=== PATIENT | male | born 1950 | race African-American/Black ===

== ENCOUNTER 2019-05-23 17:57 | Inpatient (IN) | payer OTHER ==
[2019-05-23 18:12] VITALS: BMI 24.3
[2019-05-23] MEDS ORDERED: SODIUM CHLORIDE 0.9% 500 ML INFUS.BAG IV ONE (19:13)
--- NOTE | 2019-05-23 19:17 | PDOC ---
History of Present Illness - General Chief Complaint: Pain Stated Complaint: LEG PAIN Time Seen by Provider: 05/23/19 18:56 - History of Present Illness Initial Comments: Renard Massey is a 69yo man with a PMH of thyroid disease, OA, and alcohol abuse who presents with lightheadedness, shortness of breath, and tachycardia today. He states that he feels that he is dehydrated as he has not been drinking any water for several days as he has been very busy caring for his . He additionally reports that he had "a pint of vodka and 3 beers" yesterday as well as similar amounts earlier in the week. He says that he only drinks on the weekends generally but has been drinking more frequently over the past week due to the holiday and his anniversary. He says that he was walking this afternoon when he felt "dizziness in his head" as well as generalized weakness. He denies any chest pain, vomiting, sweating, cough, LOC, or focal neurological symptoms. He has been taking his medications as prescribed. He takes ibuprofen frequently for hip pain due to arthritis but denies any blood in his stool or melena. He notes that his synthroid dose was recently increased from 75 to 88mcg, and he has not been back to see his doctor since it was changed. Past History - Past Medical History Allergies/Adverse Reactions: Allergies Allergy/AdvReac Type Severity Reaction Status Date / Time No Known Allergies Allergy Verified 05/23/19 18:12 Home Medications: Ambulatory Orders Ibuprofen 800 mg PO DAILY 05/23/19 Levothyroxine [Synthroid -] 88 mcg PO DAILY 05/23/19 CVA: Yes COPD: No Thyroid Disease: Yes - Suicide/Smoking/Psychosocial Hx Smoking History: Current every day smoker Number of Cigarettes Smoked Daily: 4 Information on smoking cessation initiated: No Review of Systems - Review of Systems Comments:: General: No fevers, no chills, no weight or appetite change, no malaise HEENT: No changes in vision, no changes in hearing, no congestion, no sore throat CV: No chest pain, no palpitations, no LE edema Pulm: + SOB, no cough, no wheezing GI: No nausea or vomiting, no change in bowel habits, no melena : No frequency, no urgency, no dysuria Musc: No back pain, no joint swelling, no recent injury Skin: No rash, no lesions, no erythema Endo: No excessive thirst, no heat/cold intolerance Heme: No unusual bruising or bleeding, no swollen glands Neuro: No syncope, no numbness/tingling, no focal weakness Vasc: No claudication Psych: No recent change in mood, no SI or HI *Physical Exam - Vital Signs Last Vital Signs Temp Pulse Resp BP Pulse Ox 98 F 121 H 18 115/71 92 L 05/23/19 18:08 05/23/19 18:08 05/23/19 18:08 05/23/19 18:08 05/23/19 18:08 - Physical Exam Comments: General: Comfortable, no acute distress HEENT: PERRL, EOMI, MMM, voice normal Cards: Tachycardic, regular, no murmur appreciated Pulm: Comfortable on room air, clear to auscultation bilaterally Abd: Soft, nontender, nondistended Ext: Atraumatic. No LE edema. ROM intact Vasc: Extremities WWP Skin: Normal color, no rashes or lesions Neuro: A&Ox3, CN grossly intact, normal speech, motor/sensory grossly intact and symmetric Psych: Mood appropriate to situation ED Treatment Course - LABORATORY CBC & Chemistry Diagram: 05/23/19 19:24 05/23/19 19:24 - RADIOLOGY Radiology Studies Ordered: Category Date Time Status CHEST PA & LAT [RAD] Stat Radiology 05/23/19 19:08 Ordered Medical Decision Making - Medical Decision Making 05/23/19 19:13 Renard Massey is a 69yo man with a PMH of thyroid disease, OA, and alcohol abuse who presents with lightheadedness, shortness of breath, and tachycardia today. He says that he believes it might be the heat as he has had very little water recently. He also endorses drinking heavily (1pt vodka, several beers) multiple times this week, most recently last night. - Note that patient has multiple open charts. Prior records note alcohol abuse though patient states he only drinks on weekends - Ddx includes dehydration, alcohol withdrawal, hyperthyroidism due to recent medication change, cannot exclude ACS - CBC, CMP, trop, EKG, CXR, TSH, T4 - 1L NS 05/23/19 20:39 - Labs reviewed. Notable for trop of 2.79 - Prior labs reviewed, no other trop available for comparison - EKG w/ sinus tach, normal intervals. Non-specific ST/t-wave changes in V1-V3; no comparison available - ASA ordered - 25mg librium ordered for continued tachycardia, possible early withdrawal - Updated pt. Now stating that he started having ODELL yesterday but assumed it was due to the heat. Endorsed to Dr Braden that he was out painting the house in the heat as well. - Advised patient that he should be admitted to the hospital due to a likely MS. Pt states that he does not feel he can be admitted as he needs to go to court tomorrow due to problems with his apartment. - Explained reasons for recommending admission. Requested that patient discuss hospital admission with his family. - Repeat trop sent. Will discuss w/ patient when resulted 05/23/19 22:46 - Repeat troponin 3.08 - Discussed results with patient, his , and Dr Braden. Explained severity of findings of elevated troponin. Ensured that patient understands he is having an MS. He states understanding, is concerned that his will not have anyone to help her at home. 05/23/19 22:53 - Spoke to Dr Owens, demolition hammer operator for Dr Carrillo. Agrees w/ plan for heparin and plavix. No indication for transfer for NSTEMI w/o chest pain - Call placed to Dr Garrido for admission 05/23/19 23:34 - Spoke to Dr Garrido, Will admit to telemetry Seen with Dr Braden. Tania Mims PGY2 *DC/Admit/Observation/Transfer Diagnosis at time of Disposition: Non-ST elevation (NSTEMI) myocardial infarction - Discharge Dispostion Decision to Admit order: Yes - Referrals - Patient Instructions - Post Discharge Activity
[2019-05-23 19:31] LABS: BASO % 0.6 % (0-2.0); EOS % 0.2 % (0-4.5); HEMATOCRIT 38.5 % (35.4-49); HEMOGLOBIN 12.6 GM/dL (11.7-16.9); LYMPH % 14.7 % (8-40); MCH 31.9 pg (25.7-33.7); MCHC 32.7 g/dl (32.0-35.9); MEAN CELL VOLUME 97.6 fl (80-96); MEAN PLT VOLUME 6.9 fl (7.5-11.1); MONO % 7.8 % (3.8-10.2); NEUT % 76.7 % (42.8-82.8); PLATELET COUNT 198 K/MM3 (134-434); RBC 3.94 M/mm3 (4.00-5.60); RDW 13.6 % (11.9-15.9); WHITE BLOOD COUNT 8.6 K/mm3 (4.0-10.0)
[2019-05-23 20:30] LABS: ALBUMIN 3.6 g/dl (3.4-5.0); BILIRUBIN,TOTAL 1.9 mg/dL (0.2-1); BLOOD UREA NITROGEN 16.1 mg/dL (7-18); CALCIUM 9.1 mg/dL (8.5-10.1); CREATININE 1.8 mg/dL (0.55-1.3); POTASSIUM 4.4 mmol/L (3.5-5.1); TOT PROT 7.8 g/dl (6.4-8.2)
[2019-05-23] MEDS ORDERED: ASPIRIN 81 MG CHEWABLE TABLETS PO ONE (20:41)
[2019-05-23] MEDS ORDERED: chlordiazePOXIDE HCL 25 MG CAPSULE PO ONE (20:41)
[2019-05-23] MEDS ORDERED: ASPIRIN 81 MG CHEWABLE TABLETS ONE (20:44)
[2019-05-23] MEDS ORDERED: chlordiazePOXIDE HCL 25 MG CAPSULE ONE (20:44)
[2019-05-23 21:08] LABS: EPI CELLS 2.4 /HPF (0-5/HPF); HYALINE CASTS 6 /lpf (0-8); URINE APPEARANCE CLEAR; URINE BACTERIA 27.9 /hpf (NEGATIVE); URINE BILIRUBIN NEGATIVE (NEGATIVE); URINE COLOR YELLOW; URINE GLUCOSE (UA) NEGATIVE (NEGATIVE); URINE KETONE NEGATIVE (NEGATIVE); URINE LEUK ESTERASE NEGATIVE (NEGATIVE); URINE NITRITE NEGATIVE (NEGATIVE); URINE PROTEIN TRACE (NEGATIVE); URINE RBC 3 /hpf (0-4); URINE UROBILINOGEN 0.2 mg/dL (0.2-1.0); URINE WBC 2 /hpf (0-5)
[2019-05-23 22:36] VITALS: TEMP 98
[2019-05-23] MEDS ORDERED: HEPARIN NA (PORCINE) 5,000 UNITS/ML 1ML VIAL IVPUSH PRN ×2 (22:56)
[2019-05-23] MEDS ORDERED: CLOPIDOGREL BISULFATE 300 MG TABLET PO ONE (22:56)
[2019-05-23] MEDS ORDERED: HEPARIN - 25,000 UNIT in SODIUM CHLORIDE 495 ML IV SCH (23:00)
[2019-05-23] MEDS ORDERED: CLOPIDOGREL BISULFATE 300 MG TABLET ONE (23:04)
[2019-05-23] MEDS ORDERED: HEPARIN NA (PORCINE) 5,000 UNITS/ML 1ML VIAL ONE (23:05)
[2019-05-23] MEDS ORDERED: HEPARIN INFUSION - 25,000 UNITS/500 ML INFUS.BAG IVPB ONE (23:05)
[2019-05-23 23:36] LABS: INR 1.03 (0.83-1.09); PROTHROMBIN TIME (PATIENT) 12.2 SEC (9.7-13.0)
[2019-05-23 23:38] LABS: ACTIVATED PTT 30.7 SECONDS (25.2-36.5)
[2019-05-24] MEDS ORDERED: DEXTROSE 5%-0.45% SALINE 1,000 ML IV SCH (03:00)
[2019-05-24] MEDS ORDERED: LEVOTHYROXINE NA 25 MCG TABLET (FP) ONE (06:52)
[2019-05-24] MEDS ORDERED: LEVOTHYROXINE NA 88 MCG TABLET (FP) PO SCH (07:00)
[2019-05-24 07:14] LABS: CHOLESTEROL 125 mg/dL (50-200); HDL CHOLESTEROL 58 mg/dL (40-60); TRIGLYCERIDES 76 mg/dL (0-150)
[2019-05-24 07:18] LABS: ALBUMIN 3.2 g/dl (3.4-5.0); BILIRUBIN,TOTAL 1.4 mg/dL (0.2-1); BLOOD UREA NITROGEN 13.7 mg/dL (7-18); CALCIUM 8.1 mg/dL (8.5-10.1); CREATININE 1.2 mg/dL (0.55-1.3); POTASSIUM 3.4 mmol/L (3.5-5.1); TOT PROT 7.1 g/dl (6.4-8.2)
[2019-05-24] MEDS ORDERED: ASPIRIN COATED 81 MG TABLET.EC PO SCH (10:00)
[2019-05-24] MEDS ORDERED: ASPIRIN COATED 81 MG TABLET.EC ONE (10:14)
[2019-05-24] MEDS ORDERED: METOPROLOL TARTRATE 25 MG TABLET (FP) ONE (10:15)
[2019-05-24] MEDS ORDERED: METOPROLOL TARTRATE 25 MG TABLET (FP) PO ONE (10:25)
--- NOTE | 2019-05-24 10:42 | CON.CARD ---
Consult Consult Specialty:: Cardiology Reason for Consultation:: nonstemi - History of Present Illness History of Present Illness: Renard Massey is a 69yo man with a PMH of thyroid disease, OA, and alcohol abuse who presents with lightheadedness, shortness of breath, and tachycardia today. He states that he feels that he is dehydrated as he has not been drinking any water for several days as he has been very busy caring for his . He additionally reports that he had "a pint of vodka and 3 beers" yesterday as well as similar amounts earlier in the week. He says that he only drinks on the weekends generally but has been drinking more frequently over the past week due to the holiday and his anniversary. He says that he was walking this afternoon when he felt "dizziness in his head" as well as generalized weakness. He denies any chest pain, vomiting, sweating, cough, LOC, or focal neurological symptoms. He has been taking his medications as prescribed. He takes ibuprofen frequently for hip pain due to arthritis but denies any blood in his stool or melena. He notes that his synthroid dose was recently increased from 75 to 88mcg, and he has not been back to see his doctor since it was changed. - History Source History Provided By: Patient, Medical Record - Smoking History Smoking history: Current every day smoker Aproximately how many cigarettes per day: 4 Home Medications - Allergies Allergies/Adverse Reactions: Allergies Allergy/AdvReac Type Severity Reaction Status Date / Time No Known Allergies Allergy Verified 05/23/19 18:12 - Home Medications Home Medications: Ambulatory Orders Ibuprofen 800 mg PO DAILY 05/23/19 Levothyroxine [Synthroid -] 88 mcg PO DAILY 05/23/19 Review of Systems - Review of Systems Constitutional: reports: No Symptoms Eyes: reports: No Symptoms HENT: reports: No Symptoms Neck: reports: No Symptoms Cardiovascular: reports: No Symptoms Respiratory: reports: SOB, SOB on Exertion Gastrointestinal: reports: No Symptoms Genitourinary: reports: No Symptoms Breasts: reports: No Symptoms Reported Musculoskeletal: reports: No Symptoms Integumentary: reports: No Symptoms Neurological: reports: No Symptoms Endocrine: reports: No Symptoms Hematology/Lymphatic: reports: No Symptoms Psychiatric: reports: No Symptoms Vital Signs: Vital Signs Temperature 98.0 F 05/23/19 22:12 Pulse Rate 96 H 05/24/19 07:03 Respiratory Rate 20 05/24/19 07:03 Blood Pressure 112/72 05/24/19 07:03 O2 Sat by Pulse Oximetry (%) 97 05/24/19 07:03 Constitutional: Yes: Well Nourished, No Distress, Calm Eyes: Yes: WNL, Conjunctiva Clear, EOM Intact HENT: Yes: WNL, Atraumatic, Normocephalic Neck: Yes: WNL, Supple, Trachea Midline Respiratory: Yes: WNL, Regular, CTA Bilaterally Gastrointestinal: Yes: WNL, Normal Bowel Sounds Renal/: Yes: WNL Cardiovascular: Yes: WNL, Regular Rate and Rhythm Musculoskeletal: Yes: WNL Extremities: Yes: WNL Integumentary: Yes: WNL Neurological: Yes: WNL, Alert, Oriented ...Motor Strength: WNL Psychiatric: Yes: WNL, Alert, Oriented - Other Data Labs, Other Data: CBC, BMP 05/23/19 19:24 05/24/19 06:00 INR, PTT INR 1.03 (0.83-1.09) 05/23/19 23:06 Troponin, BNP 05/23/19 05/23/19 05/24/19 19:24 21:39 06:00 Troponin I 2.79 H* 3.08 H* 2.92 H* Troponin, BNP 05/23/19 05/23/19 05/24/19 19:24 21:39 06:00 Troponin I 2.79 H* 3.08 H* 2.92 H* Imaging - Results Chest X-ray: Image Reviewed (no i/e) EKG: Image Reviewed (sr anterior st depressions) Problem List - Problems (1) Non-ST elevation (NSTEMI) myocardial infarction Code(s): I21.4 - NON-ST ELEVATION (NSTEMI) MYOCARDIAL INFARCTION Assessment/Plan nonstemi abn ekg hypothyroidism etoh abuse Plan asa plavix bb iv heparine f/u ekg echo awaiting transfer to [facility] d/w Fly Eugene md at [facility] wastewater analyst lab analyst
--- NOTE | 2019-05-24 11:16 | EKG ---
Test Reason : Blood Pressure : / mmHG Vent. Rate : 114 BPM Atrial Rate : 114 BPM P-R Int : 172 ms QRS Dur : 084 ms QT Int : 332 ms P-R-T Axes : 078 038 016 degrees QTc Int : 457 ms SINUS TACHYCARDIA ANTERIOR INFARCT , AGE UNDETERMINED ABNORMAL ECG NO PREVIOUS ECGS AVAILABLE Confirmed by WILLY SOTO MD ([id number]) on 05/24/2019 11:15:59 AM Referred By: Confirmed By:WILLY SOTO MD
--- NOTE | 2019-05-24 11:18 | EKG ---
Test Reason : Blood Pressure : / mmHG Vent. Rate : 118 BPM Atrial Rate : 118 BPM P-R Int : 168 ms QRS Dur : 082 ms QT Int : 336 ms P-R-T Axes : 079 034 058 degrees QTc Int : 470 ms SINUS TACHYCARDIA CANNOT RULE OUT ANTERIOR INFARCT , AGE UNDETERMINED ABNORMAL ECG NO PREVIOUS ECGS AVAILABLE Confirmed by WILLY SOTO MD ([id number]) on 05/24/2019 11:17:52 AM Referred By: Confirmed By:WILLY SOTO MD
[2019-05-24] MEDS ORDERED: CLOPIDOGREL BISULFATE 75 MG TABLET (FP) PO SCH (11:45)
[2019-05-24] MEDS ORDERED: CLOPIDOGREL BISULFATE 75 MG TABLET (FP) ONE (12:00)
[2019-05-24 13:08] LABS: BASO % 1.1 % (0-2.0); EOS % 0.7 % (0-4.5); HEMATOCRIT 35.5 % (35.4-49); HEMOGLOBIN 11.9 GM/dL (11.7-16.9); LYMPH % 28.6 % (8-40); MCH 32.6 pg (25.7-33.7); MCHC 33.6 g/dl (32.0-35.9); MEAN CELL VOLUME 97.1 fl (80-96); MEAN PLT VOLUME 7.1 fl (7.5-11.1); MONO % 7.3 % (3.8-10.2); NEUT % 62.3 % (42.8-82.8); PLATELET COUNT 178 K/MM3 (134-434); RBC 3.66 M/mm3 (4.00-5.60); RDW 13.9 % (11.9-15.9); WHITE BLOOD COUNT 8.3 K/mm3 (4.0-10.0)
[2019-05-24] MEDS ORDERED: HEPARIN INFUSION - 25,000 UNITS/500 ML INFUS.BAG IVPB ONE (15:14)
[2019-05-24 15:16] VITALS: BP 130/77; PULSE 88
--- NOTE | 2019-05-24 17:29 | ECHO ---
Name: AGNES SADLER Exam:Adult Echocardiogram Study Date: 05/24/2019 10:40 AM Age: 69 yrs Reason For Study: Chest pain Height: 67 in Weight: 155 lb BSA: 1.8 m2 MMode/2D Measurements & Calculations IVSd: 1.1 cm Ao root diam: 3.5 cm LVIDd: 3.1 cm LA dimension: 2.1 cm LVIDs: 2.0 cm LVPWd: 1.3 cm EDV(Teich): 39.0 ml LVOT diam: 2.0 cm ESV(Teich): 12.9 ml LAV (MOD-bp): 29.8 ml Doppler Measurements & Calculations MV E max andrés: 70.8 cm/sec Ao V2 max: 82.8 cm/sec MV A max andrés: 67.9 cm/sec Ao max P.7 mmHg MV E/A: 1.0 MV dec time: 0.06 sec JONES(V,D): 1.9 cm2 LV V1 max P.1 mmHg MR max andrés: 316.3 cm/sec LV V1 max: 52.4 cm/sec MR max P.0 mmHg TR max andrés: 270.1 cm/sec PA V2 max: 71.9 cm/sec TR max P.9 mmHg PA max P.1 mmHg Med Peak E' Andrés: 4.4 cm/sec Med E/e': 16.3 Lat Peak E' Andrés: 5.9 cm/sec Lat E/e': 12.1 Procedure The study was technically adequate with some images being suboptimal in quality. Left Ventricle The left ventricle is normal in size. The left ventricle is hyperdynamic. Ejection Fraction = >70%. Paradoxical septal motion is consistent with right ventricular volume overload. Right Ventricle The right ventricle is mildly dilated. A moderator band is seen in the right ventricle. The right temitope tricular systolic function is moderately reduced. Possible Aviles sign of RV apical hyperkinesis. Atria The left atrial size is normal. The right atrium is moderately dilated. A dilated inferior vena cava suggests increased right atrial pressure. IVC 1.9 cm. Mitral Valve The mitral valve is normal. There is trace mitral regurgitation. Tricuspid Valve The tricuspid valve is normal. There is mild to moderate tricuspid regurgitation. Right ventricular s ystolic pressure is elevated at 52 mmhg. Assuming the RA pressure is 5 mmHg. Aortic Valve The aortic valve opens well. The aortic valve is normal in structure and function. No aortic regurgit ation is present. Pulmonic Valve The pulmonic valve is not well seen, but is grossly normal. Trace pulmonic valvular regurgitation. Great Vessels The aortic root is normal size. Pericardium/Pleura There is no pericardial effusion. Interpretation Summary There is no comparison study available. Findings conveyed to Dr. Klein. Consider further imagin g to evaluate for pulmonary embolism. The right ventricular systolic function is moderately reduced. There is trace mitral regurgitation. The left ventricle is normal in size. The left ventricle is hyperdynamic. Ejection Fraction = >70%. There is mild to moderate tricuspid regurgitation. Trace pulmonic valvular regurgitation. The left atrial size is normal. The right atrium is moderately dilated. Possible Aviles sign of RV apical hyperkinesis Findings conveyed to Dr. Klein. Consider further imaging to evaluate for pulmonary embolism. Morgan Hassan MD 05/24/2019 05:28 PM
--- NOTE | 2019-05-24 18:23 | HP ---
Admitting History and Physical - Admission History of Present Illness: Pt is a 69 y/o male with a PMH of thyroid disease, OA, and alcohol abuse who presented with lightheadedness, shortness of breath, and tachycardia. He states that he felt that he was dehydrated as he has not been drinking any water for several days as he has been very busy caring for his . He additionally reports that he had "a pint of vodka and 3 beers" the day prior as well as similar amounts earlier in the week. He says that he only drinks on the weekends generally but has been drinking more frequently over the past week due to the holiday and his anniversary. He says that he was walking this afternoon when he felt "dizziness in his head" as well as generalized weakness. He denies any chest pain, or focal neurological symptoms. - Past Medical History Rheumatology: Yes: Other (OA) Endocrine: Yes: Hypothyroidism - Smoking History Smoking history: Current every day smoker Aproximately how many cigarettes per day: 4 Home Medications - Allergies Allergies/Adverse Reactions: Allergies Allergy/AdvReac Type Severity Reaction Status Date / Time No Known Allergies Allergy Verified 05/23/19 18:12 - Home Medications Home Medications: Ambulatory Orders Ibuprofen 800 mg PO DAILY 05/23/19 Levothyroxine [Synthroid -] 88 mcg PO DAILY 05/23/19 Family Disease History - Family Disease History Family History: Unremarkable Review of Systems - Review of Systems Constitutional: reports: Weakness Eyes: reports: No Symptoms HENT: reports: No Symptoms Neck: reports: No Symptoms Cardiovascular: reports: No Symptoms Respiratory: reports: No Symptoms Gastrointestinal: reports: No Symptoms Physical Examination Vital Signs: Vital Signs Temperature 98.0 F 05/23/19 22:12 Pulse Rate 88 05/24/19 15:16 Respiratory Rate 20 05/24/19 15:16 Blood Pressure 130/77 05/24/19 15:16 O2 Sat by Pulse Oximetry (%) 96 05/24/19 13:52 Constitutional: Yes: No Distress Eyes: Yes: WNL HENT: Yes: WNL Neck: Yes: WNL, Supple Cardiovascular: Yes: WNL, Regular Rate and Rhythm Respiratory: Yes: WNL, Regular, CTA Bilaterally Gastrointestinal: Yes: WNL, Normal Bowel Sounds, Soft Musculoskeletal: Yes: WNL Extremities: Yes: WNL Edema: No Neurological: Yes: WNL, Alert, Oriented ...Motor Strength: WNL Labs: CBC, BMP 05/24/19 12:53 05/24/19 06:00 Problem List - Problems (1) Non-ST elevation (NSTEMI) myocardial infarction Assessment/Plan: Pt started on IV heparin/plavix/asa Pt awaiting transfer to [facility] consult Code(s): I21.4 - NON-ST ELEVATION (NSTEMI) MYOCARDIAL INFARCTION
--- NOTE | 2019-05-26 02:55 | PDOC ---
Documentation entered by Xochitl Mcdermott SCRIBE, acting as scribe for Manisha Braden MD. Manisha Braden MD: This documentation has been prepared by the Sharron shay Sammi, SCRIBE, under my direction and personally reviewed by me in its entirety. I confirm that the documentation accurately reflects all work, treatment, procedures, and medical decision making performed by me. Attending Attestation - Resident Resident Name: Tania Mims - ED Attending Attestation I have performed the following: I have examined & evaluated the patient, The case was reviewed & discussed with the resident, I agree w/resident's findings & plan, Exceptions are as noted - HPI HPI: 05/23/19 21:53 69-year-old male presents because of exertional dyspnea and weakness. head normocephalic/atraumatic. Eyes mild proptosis, pupils equal, reactive to light and accommodation, extraocular muscles are intact supple, no bruits. Lungs are clear to auscultation bilaterally CVS tachycardia Abdomen flat, nontender. No CVA tenderness. Skin warm and dry. neuro alert and oriented 3, ambulatory Psych appropriate - Physicial Exam PE: 05/26/19 02:55 physical exam is above - Medical Decision Making 05/23/19 21:57 the troponin was positive at 2.7 and the pt was informed that he has had a nstemi. He denies having any chest pain but he had never experienced exertional dyspnea before. the ekg is sinus tachycardia @118 bpm pt given full dose of aspirin ,he will be started on heparin and given plavix 600mg cxr napd 05/23/19 22:01 05/23/19 22:[address] Owens who will be the cardiac quality assurance consultant pt to be admitted to tele
== END 2019-05-24 17:45 | disposition short-term general hospital (02) | DRG 282 ==
LOC: JER 17:57 → JERBED 23:35
PROVIDERS: ADMIT Internal Medicine; ATTEND Internal Medicine
DX: I21.4 Non-ST elevation (NSTEMI) myocardial infarction (principal); J44.9 Chronic obstructive pulmonary disease, unspecified; M19.90 Unspecified osteoarthritis, unspecified site; F17.210 Nicotine dependence, cigarettes, uncomplicated; R94.31 Abnormal electrocardiogram [ECG] [EKG]; E03.9 Hypothyroidism, unspecified; F10.10 Alcohol abuse, uncomplicated; Z86.73 Personal history of transient ischemic attack (TIA), and cerebral infarction without residual deficits
CPT/HCPCS: 36415; 71046-TC-FY; 80053; 80061; 80307; 81003; 82550; 82553; 83721; 84439; 84443; 84484; 85025; 85610; 85730; 93005; 93010; 93306-TC; 99285-25; J1644